=== PATIENT | male | born 1950 | race Caucasian/White ===

== ENCOUNTER 2017-07-09 08:12 | Inpatient (IN) | payer BC, MEDICARE ==
[~2017-07-09] VITALS: Ht 180.3 cm; Wt 72.0 kg
[~2017-07-09 08:12] MED LIST: ASPI81TA39 PO; ATRO2DRO OS; CHOL400T4 PO; DIVA500T69 PO; HYDR-2924 PO; INSLAN SQ; INSU100V SQ; PANT40TA25 PO; PRED1DRO OS; QUET50TA PO; SERT50TA12 PO
[2017-07-09 09:10] LABS: BASOPHILS # (AUTO) 0.02 K/uL (0.00-0.20); BASOPHILS % (AUTO) 0.2 % (0.0-2.0); EOSINOPHILS # (AUTO) 0.01 K/uL (0.00-0.70); EOSINOPHILS % (AUTO) 0.05 % (1.0-6.0); HEMATOCRIT 29.1 % (41-53); HEMOGLOBIN 9.4 g/dL (13.5-17.5); LYMPHOCYTES # (AUTO) 0.4 K/uL (1.0-4.8); LYMPHOCYTES % (AUTO) 3.7 % (22.0-44.0); MEAN CORPUSCULAR HEMOGLOBIN 32.7 pg (26.0-34.0); MEAN CORPUSCULAR HGB CONC 32.2 G/dL (31.0-37.0); MEAN CORPUSCULAR VOLUME 102 fL (80-100); MONOCYTES # (AUTO) 0.4 K/uL (0.1-1.0); MONOCYTES % (AUTO) 3.5 % (2.0-9.0); NEUTROPHILS # (AUTO) 9.5 K/uL (1.8-7.7); PLATELET COUNT (AUTO) 143 K/uL (150-450); RED BLOOD CELL COUNT(AUTO) 2.87 MIL/uL (4.50-5.90); RED CELL DISTRIBUTION WIDTH 18.1 % (11.5-14.5); WHITE BLOOD COUNT (AUTO) 10.2 K/uL (4.5-11.0)
[2017-07-09 09:14] LABS: NEUTROPHILS % (AUTO) 92.5 % (40.0-70.0)
[2017-07-09 09:21] LABS: INR 1.2 (0.9-1.1); PROTHROMBIN TIME 12.3 SEC (9.4-11.6)
[2017-07-09 09:28] LABS: ALBUMIN 3.1 g/dL (3.4-5.0); BILIRUBIN,TOTAL 0.9 mg/dL (0.1-1.0); CALCIUM, TOTAL 8.9 mg/dL (8.8-10.5); CREATININE 4.26 mg/dL (0.60-1.30); POTASSIUM 5.4 mmol/L (3.5-5.1); TOTAL PROTEIN, SERUM 7.5 g/dL (6.4-8.2)
[2017-07-09] MEDS ORDERED: SODIUM CHLORIDE 0.9% 500 ML IV ONE (09:30)
[2017-07-09] MEDS ORDERED: INSULIN REGULAR, HUMAN 100 UNITS/ML IVP ONE (09:45)
[2017-07-09] MEDS ORDERED: SODIUM POLYSTYRENE SULFONATE 15 GM/60 ML SUSPENSION BOTTLE PO ONE (09:45)
[2017-07-09] MEDS ORDERED: PANTOPRAZOLE SODIUM 80 MG in SODIUM CHLORIDE 0.9% 50 ML IV ONE (09:45)
[2017-07-09] MEDS ORDERED: ONDANSETRON HCL 4 MG/2 ML VIAL IVP PRN ×2 (10:15→11:00)
[2017-07-09] MEDS ORDERED: ACETAMINOPHEN 325 MG TABLET PO PRN ×2 (10:15→11:00)
[2017-07-09] MEDS ORDERED: BISACODYL 10 MG RECTAL RECTAL SUPPOSITORY PR PRN (10:15)
[2017-07-09] MEDS ORDERED: PANTOPRAZOLE SODIUM 40 MG/VIAL IVP SCH (10:15)
[2017-07-09] MEDS ORDERED: ALBUTEROL SULFATE 2.5 MG/0.5 ML NEB SOLUTION NEB PRN (10:15)
[2017-07-09 10:18] LABS: GLUCOSE COMMENT 1 Repeated; GLUCOSE COMMENT 3 Doctor Notified; GLUCOSE,POINT OF CARE > 600 MG/DL (70-110)
[2017-07-09] MEDS: OCTREOTIDE ACETATE 500 MCG in DEXTROSE 5%-WATER 97.5 ML IV SCH ×2 (10:18→19:43)
[2017-07-09] MEDS ORDERED: INSULIN ASPART 100 UNITS/ML SQ PRN (10:30)
[2017-07-09] MEDS ORDERED: DEXTROSE 50%-WATER 25 GM/50 ML SYRINGE IVP PRN (10:30)
[2017-07-09] MEDS ORDERED: INSULIN DETEMIR 100 UNITS/ML SQ SCH ×2 (10:30→22:00)
[2017-07-09 10:47] LABS: ALLEN TEST, BLOOD GAS Positive
[2017-07-09 10:48] LABS: ABG BASE EXCESS -13.8 mmol/L (-2.0-3.0); ABG HCO3 14.7 mmol/L (22.0-26.0); ABG OXYHEMOGLOBIN 97.9 % (94.0-100.0); ABG PCO2 28 mmHg (35-45); TEMPERATURE, FAHRENHEIT, BG 98.3 FAHREN (96.0-98.6)
[2017-07-09 10:49] LABS: ABG A-A DIFF O2 14.7 mmHg (10-20.0)
[2017-07-09] MEDS: PANTOPRAZOLE SODIUM 80 MG in SODIUM CHLORIDE 0.9% 100 ML IV SCH ×2 (10:49→19:44)
[2017-07-09] MEDS ORDERED: 0.9% SODIUM CHLORIDE 10 ML SYRINGE IVP PRN (11:00)
[2017-07-09] MEDS: AmLODIPine BESYLATE 5 MG TABLET PO SCH ×2 (11:07→19:43)
[2017-07-09] MEDS: ASPIRIN 81 MG CHEWABLE TABLET PO SCH (11:08)
[2017-07-09] MEDS: CARVEDILOL 12.5 MG TABLET PO SCH ×2 (11:31→19:43)
[2017-07-09] MEDS: ATORVASTATIN CALCIUM 20 MG TABLET PO SCH (11:31)
[2017-07-09 11:48] LABS: GLUCOSE COMMENT 2 Doctor Notified; GLUCOSE,POINT OF CARE > 600 MG/DL (70-110)
[2017-07-09] MEDS ORDERED: INSULIN REGULAR, HUMAN 100 UNITS in SODIUM CHLORIDE 0.9% 99 ML IV PRN ×2 (12:46)
[2017-07-09] MEDS ORDERED: DEXTROSE 5%-WATER 1,000 ML IV SCH (12:54)
[2017-07-09] MEDS ORDERED: DEXTROSE 5%-0.45% SODIUM CHL 1,000 ML IV PRN (13:00)
[2017-07-09 13:37] LABS: GLUCOSE COMMENT 1 Doctor Notified; GLUCOSE,POINT OF CARE > 600 MG/DL (70-110)
[2017-07-09] MEDS ORDERED: CARVEDILOL 6.25 MG TABLET PO SCH (13:45)
[2017-07-09] MEDS ORDERED: AmLODIPine BESYLATE 5 MG TABLET PO SCH (13:45)
[2017-07-09 16:21] VITALS: BP 208/72
[2017-07-09 17:15] LABS: BASOPHILS # (AUTO) 0.01 K/uL (0.00-0.20); BASOPHILS % (AUTO) 0.1 % (0.0-2.0); EOSINOPHILS % (AUTO) 0.01 % (1.0-6.0); HEMATOCRIT 29.2 % (41-53); HEMOGLOBIN 9.5 g/dL (13.5-17.5); LYMPHOCYTES # (AUTO) 0.6 K/uL (1.0-4.8); LYMPHOCYTES % (AUTO) 6.3 % (22.0-44.0); MEAN CORPUSCULAR HEMOGLOBIN 32.4 pg (26.0-34.0); MEAN CORPUSCULAR HGB CONC 32.5 G/dL (31.0-37.0); MEAN CORPUSCULAR VOLUME 100 fL (80-100); MONOCYTES # (AUTO) 0.5 K/uL (0.1-1.0); MONOCYTES % (AUTO) 5.1 % (2.0-9.0); NEUTROPHILS # (AUTO) 8.6 K/uL (1.8-7.7); PLATELET COUNT (AUTO) 158 K/uL (150-450); RED BLOOD CELL COUNT(AUTO) 2.93 MIL/uL (4.50-5.90); RED CELL DISTRIBUTION WIDTH 18.1 % (11.5-14.5); WHITE BLOOD COUNT (AUTO) 9.8 K/uL (4.5-11.0)
[2017-07-09 17:34] LABS: CALCIUM, TOTAL 8.6 mg/dL (8.8-10.5); CREATININE 5.08 mg/dL (0.60-1.30); MAGNESIUM 2.3 mg/dL (1.80-2.40); NEUTROPHILS % (AUTO) 88.6 % (40.0-70.0); PHOSPHORUS 4.4 mg/dL (2.5-4.9); POTASSIUM 3.5 mmol/L (3.5-5.1)
[2017-07-09] MEDS ORDERED: INFLUENZA VIRUS VACCINE QVS 2017-18 (3YR+)/PF 60 MCG/0.5 ML SYRINGE IM ONE (19:45)
[2017-07-09 20:00] VITALS: BP 196/79
[2017-07-09] MEDS: DOCUSATE SODIUM 100 MG CAPSULE PO SCH (21:40)
[2017-07-09] MEDS: LABETALOL HCL 5 MG/ML 20 ML VIAL IVP PRN (21:49)
[2017-07-10] VITALS: BP 167/68
[2017-07-10] MEDS: HydrALAZINE HCL 20 MG/ML VIAL IVP PRN ×3 (00:07→21:11)
[2017-07-10] MEDS ORDERED: POTASSIUM CHL 10 MEQ/WATER 50 ML IV ONE (00:45)
[2017-07-10] MEDS ORDERED: SODIUM CHLORIDE 0.9% 250 ML IV ONE (00:46)
[2017-07-10 01:22] LABS: GLUCOSE,POINT OF CARE 192 MG/DL (70-110)
[2017-07-10 01:22] LABS: GLUCOSE COMMENT 1 Received Meds; GLUCOSE,POINT OF CARE 151 MG/DL (70-110)
[2017-07-10 01:22] LABS: GLUCOSE COMMENT 1 Received Meds; GLUCOSE,POINT OF CARE 266 MG/DL (70-110)
[2017-07-10] MEDS: DEXTROSE 50%-WATER 25 GM/50 ML SYRINGE IVP PRN ×3 (03:42→07:58)
[2017-07-10 04:00] VITALS: BP 193/71
[2017-07-10 04:11] LABS: BASOPHILS % (AUTO) 0.6 % (0.0-2.0); EOSINOPHILS % (AUTO) 2.3 % (1.0-6.0); HEMATOCRIT 30.5 % (41-53); HEMOGLOBIN 10.1 g/dL (13.5-17.5); LYMPHOCYTES # (AUTO) 0.7 K/uL (1.0-4.8); LYMPHOCYTES % (AUTO) 6.8 % (22.0-44.0); MEAN CORPUSCULAR HEMOGLOBIN 32.8 pg (26.0-34.0); MEAN CORPUSCULAR HGB CONC 33.2 G/dL (31.0-37.0); MEAN CORPUSCULAR VOLUME 99 fL (80-100); MONOCYTES # (AUTO) 0.7 K/uL (0.1-1.0); MONOCYTES % (AUTO) 6.8 % (2.0-9.0); NEUTROPHILS # (AUTO) 8.5 K/uL (1.8-7.7); NEUTROPHILS % (AUTO) 83.5 % (40.0-70.0); PLATELET COUNT (AUTO) 163 K/uL (150-450); RED BLOOD CELL COUNT(AUTO) 3.09 MIL/uL (4.50-5.90); WHITE BLOOD COUNT (AUTO) 10.2 K/uL (4.5-11.0)
[2017-07-10 04:24] LABS: CALCIUM, TOTAL 8.8 mg/dL (8.8-10.5); CREATININE 5.19 mg/dL (0.60-1.30); MAGNESIUM 2.1 mg/dL (1.80-2.40); PHOSPHORUS 4.8 mg/dL (2.5-4.9)
[2017-07-10 04:29] LABS: POTASSIUM 2.9 mmol/L (3.5-5.1)
[2017-07-10 04:31] LABS: RBC MORPHOLOGY COMMENT ABNORMAL RBC MORPH
[2017-07-10] MEDS: POTASSIUM CHL 10 MEQ/WATER 50 ML IV SCH ×2 (05:15→06:14)
[2017-07-10 05:57] LABS: GLUCOSE COMMENT 1 Stat Lab Glu Request; GLUCOSE,POINT OF CARE < 10 MG/DL (70-110)
[2017-07-10 05:57] LABS: GLUCOSE,POINT OF CARE 104 MG/DL (70-110)
[2017-07-10 07:07] LABS: GLUCOSE COMMENT 1 Received Meds; GLUCOSE,POINT OF CARE 34 MG/DL (70-110)
[2017-07-10 07:07] LABS: GLUCOSE,POINT OF CARE 139 MG/DL (70-110)
[2017-07-10 08:00] VITALS: BP 176/91
[2017-07-10] MEDS: CARVEDILOL 12.5 MG TABLET PO SCH (08:57)
[2017-07-10] MEDS: DOCUSATE SODIUM 100 MG CAPSULE PO SCH ×2 (08:57→21:11)
[2017-07-10] MEDS: ASPIRIN 81 MG CHEWABLE TABLET PO SCH (08:57)
[2017-07-10] MEDS: ATORVASTATIN CALCIUM 20 MG TABLET PO SCH (08:57)
[2017-07-10] MEDS: HydrALAZINE HCL 25 MG TABLET PO SCH ×3 (08:58→21:11)
[2017-07-10] MEDS: AmLODIPine BESYLATE 5 MG TABLET PO SCH (08:58)
[2017-07-10] MEDS ORDERED: INSULIN ASPART 100 UNITS/ML SQ PRN ×2 (11:15)
[2017-07-10 12:00] VITALS: BP 189/74
[2017-07-10] MEDS: LOSARTAN POTASSIUM 50 MG TABLET PO SCH (13:38)
[2017-07-10 16:00] VITALS: BP 217/83
[2017-07-10 16:43] LABS: GLUCOSE,POINT OF CARE 157 MG/DL (70-110)
[2017-07-10 16:43] LABS: GLUCOSE COMMENT 1 Juice/Food/D50 Given; GLUCOSE,POINT OF CARE 61 MG/DL (70-110)
[2017-07-10] MEDS ORDERED: DEXTROSE 50%-WATER 25 GM/50 ML SYRINGE IVP PRN ×2 (17:00)
[2017-07-10] MEDS: INSULIN REGULAR, HUMAN 100 UNITS/ML SQ PRN (17:01)
[2017-07-10] MEDS: LABETALOL HCL 5 MG/ML 20 ML VIAL IVP PRN ×4 (17:06→23:21)
[2017-07-10 18:03] LABS: GLUCOSE COMMENT 1 Doctor Notified; GLUCOSE COMMENT 2 Received Meds; GLUCOSE,POINT OF CARE 548 MG/DL (70-110)
[2017-07-10 18:03] LABS: GLUCOSE COMMENT 1 Received Meds; GLUCOSE,POINT OF CARE 445 MG/DL (70-110)
[2017-07-10 18:03] LABS: GLUCOSE COMMENT 1 Received Meds; GLUCOSE,POINT OF CARE 400 MG/DL (70-110)
[2017-07-10 18:03] LABS: GLUCOSE,POINT OF CARE 564 MG/DL (70-110)
[2017-07-10 18:03] LABS: GLUCOSE COMMENT 1 Doctor Notified; GLUCOSE COMMENT 2 Received Meds; GLUCOSE,POINT OF CARE 471 MG/DL (70-110)
[2017-07-10 18:03] LABS: GLUCOSE COMMENT 1 Received Meds; GLUCOSE,POINT OF CARE 336 MG/DL (70-110)
[2017-07-10 18:08] LABS: GLUCOSE COMMENT 1 Received Meds; GLUCOSE,POINT OF CARE 187 MG/DL (70-110)
[2017-07-10 18:08] LABS: GLUCOSE COMMENT 1 Received Meds; GLUCOSE,POINT OF CARE 146 MG/DL (70-110)
[2017-07-10 18:08] LABS: GLUCOSE COMMENT 1 Received Meds; GLUCOSE,POINT OF CARE 216 MG/DL (70-110)
[2017-07-10 20:00] VITALS: BP 193/79
[2017-07-10] MEDS: PANTOPRAZOLE SODIUM 40 MG/VIAL IVP SCH (21:10)
[2017-07-10] MEDS: INSULIN DETEMIR 100 UNITS/ML SQ SCH (21:23)
[2017-07-10 21:32] LABS: GLUCOSE,POINT OF CARE 195 MG/DL (70-110)
[2017-07-10] MEDS: CARVEDILOL 25 MG TABLET PO SCH (22:18)
[2017-07-10] MEDS: AmLODIPine BESYLATE 10 MG TABLET PO SCH (22:18)
[2017-07-11] VITALS (16 sets, daily range): BP systolic 153–201; BP diastolic 62–130
[2017-07-11] MEDS: LABETALOL HCL 5 MG/ML 20 ML VIAL IVP PRN ×4 (00:26→04:59)
[2017-07-11] MEDS ORDERED: HydrALAZINE HCL 20 MG/ML VIAL ONE (02:11)
[2017-07-11] MEDS: HydrALAZINE HCL 20 MG/ML VIAL IVP PRN ×5 (02:14→22:18)
[2017-07-11] MEDS ORDERED: CloNIDine HCL 0.1 MG TABLET PO PRN (04:15)
[2017-07-11 05:27] LABS: EOSINOPHILS # (AUTO) 0.19 K/uL (0.00-0.70); EOSINOPHILS % (AUTO) 2.08 % (1.0-6.0); HEMATOCRIT 31.8 % (41-53); HEMOGLOBIN 10.4 g/dL (13.5-17.5); LYMPHOCYTES # (AUTO) 0.8 K/uL (1.0-4.8); LYMPHOCYTES % (AUTO) 8.8 % (22.0-44.0); MEAN CORPUSCULAR HEMOGLOBIN 32.4 pg (26.0-34.0); MEAN CORPUSCULAR HGB CONC 32.8 G/dL (31.0-37.0); MEAN CORPUSCULAR VOLUME 99 fL (80-100); MONOCYTES # (AUTO) 0.6 K/uL (0.1-1.0); MONOCYTES % (AUTO) 6.1 % (2.0-9.0); NEUTROPHILS # (AUTO) 7.7 K/uL (1.8-7.7); NEUTROPHILS % (AUTO) 83.1 % (40.0-70.0); PLATELET COUNT (AUTO) 149 K/uL (150-450); RED BLOOD CELL COUNT(AUTO) 3.21 MIL/uL (4.50-5.90); RED CELL DISTRIBUTION WIDTH 18.6 % (11.5-14.5); WHITE BLOOD COUNT (AUTO) 9.3 K/uL (4.5-11.0)
[2017-07-11 05:41] LABS: CALCIUM, TOTAL 8.7 mg/dL (8.8-10.5); CREATININE 5.93 mg/dL (0.60-1.30); PHOSPHORUS 5.2 mg/dL (2.5-4.9); POTASSIUM 3.5 mmol/L (3.5-5.1)
[2017-07-11] MEDS ORDERED: SODIUM CHLORIDE 0.9% 250 ML IV ONE (06:09)
[2017-07-11 06:35] LABS: RBC MORPHOLOGY COMMENT ABNORMAL RBC MORPH
[2017-07-11] MEDS ORDERED: LIDOCAINE HCL/PF 1% 30 ML VIAL ONE (07:27)
[2017-07-11] MEDS ORDERED: HEPARIN SODIUM 1000 UNITS/NS 1,000 ML ONE (07:27)
[2017-07-11] MEDS ORDERED: IOHEXOL 300 MG/ML 150 ML VIAL ONE (07:27)
[2017-07-11] MEDS ORDERED: SODIUM BICARBONATE 50 MEQ/50 ML VIAL ONE (07:27)
[2017-07-11] MEDS ORDERED: SODIUM CHLORIDE 0.9% 500 ML IV ONE (08:08)
[2017-07-11] MEDS ORDERED: FentaNYL CITRATE-PF 100 MCG/2 ML VIAL ONE (08:09)
[2017-07-11] MEDS ORDERED: VERAPAMIL HCL 2.5 MG/ML 2 ML VIAL ONE (08:10)
[2017-07-11] MEDS ORDERED: LIDOCAINE HCL 1% 20 ML VIAL INJ ONE (08:10)
[2017-07-11] MEDS ORDERED: HEPARIN SODIUM,PORCINE 1,000 UNITS/ML 10 ML VIAL ONE (08:10)
[2017-07-11] MEDS ORDERED: MIDAZOLAM HCL 2 MG/2 ML VIAL ONE (08:10)
[2017-07-11] MEDS ORDERED: NITROGLYCERIN 50 MG/D5% WATER 250 ML ONE (08:11)
[2017-07-11] MEDS ORDERED: HEPARIN SODIUM 2,000 UNITS in HEPARIN SODIUM 1000 UNITS/NS 1,000 ML IARTER ONE (08:11)
[2017-07-11] MEDS ORDERED: IOHEXOL 300 MG/ML 50 ML VIAL IARTER ONE (08:13)
[2017-07-11] MEDS ORDERED: IOHEXOL 300 MG/ML 100 ML VIAL IARTER ONE (08:13)
[2017-07-11] MEDS ORDERED: IOHEXOL 300 MG/ML 150 ML VIAL IARTER ONE (08:13)
[2017-07-11 08:23] LABS: GLUCOSE,POINT OF CARE 184 MG/DL (70-110)
[2017-07-11 08:23] LABS: GLUCOSE,POINT OF CARE 135 MG/DL (70-110)
[2017-07-11] MEDS ORDERED: HEPARIN SODIUM,PORCINE 5,000 UNITS/ML VIAL IVP ONE (08:27)
[2017-07-11] MEDS ORDERED: CLOPIDOGREL BISULFATE 300 MG TABLET ONE (08:33)
[2017-07-11] MEDS ORDERED: CLOPIDOGREL BISULFATE 300 MG TABLET PO ONE (08:35)
[2017-07-11] MEDS ORDERED: IOHEXOL 300 MG/ML 100 ML VIAL ONE (08:36)
[2017-07-11] MEDS ORDERED: NITROGLYCERIN/D5W 50 MG/250 ML IV BOTTLE ICOR ONE (08:48)
[2017-07-11] MEDS ORDERED: VERAPAMIL HCL 2.5 MG/ML 2 ML VIAL ICOR ONE (08:48)
[2017-07-11] MEDS: CARVEDILOL 25 MG TABLET PO SCH ×2 (09:00→20:34)
[2017-07-11] MEDS ORDERED: IOHEXOL 300 MG/ML 50 ML VIAL ONE (09:00)
[2017-07-11] MEDS: HydrALAZINE HCL 25 MG TABLET PO SCH ×3 (09:00→20:33)
[2017-07-11] MEDS ORDERED: ASPIRIN 81 MG CHEWABLE TABLET PO ONE (09:14)
[2017-07-11] MEDS ORDERED: ASPIRIN 81 MG CHEWABLE TABLET ONE (09:15)
[2017-07-11] MEDS: PANTOPRAZOLE SODIUM 40 MG/VIAL IVP SCH ×2 (10:27→20:33)
[2017-07-11] MEDS: DOCUSATE SODIUM 100 MG CAPSULE PO SCH ×2 (10:27→20:34)
[2017-07-11] MEDS: ATORVASTATIN CALCIUM 20 MG TABLET PO SCH (10:27)
[2017-07-11] MEDS: AmLODIPine BESYLATE 10 MG TABLET PO SCH ×2 (10:27→20:34)
[2017-07-11] MEDS ORDERED: SODIUM CHLORIDE 0.9% 2,000 ML IV ONE (10:55)
[2017-07-11] MEDS: INSULIN REGULAR, HUMAN 100 UNITS/ML SQ PRN ×3 (12:24→20:38)
[2017-07-11] MEDS: LOSARTAN POTASSIUM 50 MG TABLET PO SCH (15:02)
[2017-07-11] MEDS: CloNIDine HCL 0.1 MG TABLET PO SCH ×2 (15:02→20:33)
[2017-07-11] MEDS: INSULIN DETEMIR 100 UNITS/ML SQ SCH (20:37)
[2017-07-11 23:13] LABS: GLUCOSE COMMENT 1 Received Meds; GLUCOSE,POINT OF CARE 282 MG/DL (70-110)
[2017-07-12] VITALS (10 sets, daily range): BP systolic 133–183; BP diastolic 64–76
[2017-07-12] MEDS: HydrALAZINE HCL 20 MG/ML VIAL IVP PRN ×3 (00:19→05:36)
[2017-07-12] MEDS: LABETALOL HCL 5 MG/ML 20 ML VIAL IVP PRN ×2 (01:40→03:47)
[2017-07-12 04:57] LABS: GLUCOSE,POINT OF CARE 169 MG/DL (70-110)
[2017-07-12 04:57] LABS: GLUCOSE,POINT OF CARE 203 MG/DL (70-110)
[2017-07-12] MEDS: INSULIN REGULAR, HUMAN 100 UNITS/ML SQ PRN ×4 (05:44→20:58)
[2017-07-12 06:21] LABS: BASOPHILS % (AUTO) 0.2 % (0.0-2.0); EOSINOPHILS % (AUTO) 1.4 % (1.0-6.0); HEMATOCRIT 31.7 % (41-53); HEMOGLOBIN 10.4 g/dL (13.5-17.5); LYMPHOCYTES # (AUTO) 0.8 K/uL (1.0-4.8); LYMPHOCYTES % (AUTO) 10.7 % (22.0-44.0); MEAN CORPUSCULAR HEMOGLOBIN 32.5 pg (26.0-34.0); MEAN CORPUSCULAR HGB CONC 32.9 G/dL (31.0-37.0); MEAN CORPUSCULAR VOLUME 99 fL (80-100); MONOCYTES # (AUTO) 0.6 K/uL (0.1-1.0); MONOCYTES % (AUTO) 7.6 % (2.0-9.0); NEUTROPHILS # (AUTO) 6.1 K/uL (1.8-7.7); NEUTROPHILS % (AUTO) 80.1 % (40.0-70.0); PLATELET COUNT (AUTO) 145 K/uL (150-450); RED CELL DISTRIBUTION WIDTH 18.7 % (11.5-14.5); WHITE BLOOD COUNT (AUTO) 7.6 K/uL (4.5-11.0)
[2017-07-12 07:15] LABS: CALCIUM, TOTAL 8.5 mg/dL (8.8-10.5); CREATININE 4.03 mg/dL (0.60-1.30); MAGNESIUM 1.7 mg/dL (1.80-2.40); PHOSPHORUS 4.3 mg/dL (2.5-4.9); POTASSIUM 3.8 mmol/L (3.5-5.1)
[2017-07-12 07:42] LABS: RBC MORPHOLOGY COMMENT ABNORMAL RBC MORPH
[2017-07-12 08:07] LABS: GLUCOSE COMMENT 1 Received Meds; GLUCOSE,POINT OF CARE 198 MG/DL (70-110)
[2017-07-12] MEDS: CLOPIDOGREL BISULFATE 75 MG TABLET PO SCH (08:43)
[2017-07-12] MEDS: ASPIRIN 81 MG CHEWABLE TABLET PO SCH (08:43)
[2017-07-12] MEDS: PANTOPRAZOLE SODIUM 40 MG/VIAL IVP SCH ×2 (08:43→20:50)
[2017-07-12] MEDS: ATORVASTATIN CALCIUM 20 MG TABLET PO SCH (08:44)
[2017-07-12] MEDS: AmLODIPine BESYLATE 10 MG TABLET PO SCH ×2 (08:44→20:46)
[2017-07-12] MEDS: DOCUSATE SODIUM 100 MG CAPSULE PO SCH ×2 (08:44→20:46)
[2017-07-12] MEDS: CloNIDine HCL 0.1 MG TABLET PO SCH ×3 (08:44→20:46)
[2017-07-12] MEDS: CARVEDILOL 25 MG TABLET PO SCH ×2 (09:00→20:50)
[2017-07-12] MEDS: HydrALAZINE HCL 25 MG TABLET PO SCH ×3 (09:00→20:46)
[2017-07-12] MEDS: LOSARTAN POTASSIUM 50 MG TABLET PO SCH (15:49)
[2017-07-12] MEDS ORDERED: INSULIN REGULAR, HUMAN 100 UNITS/ML SQ ONE (17:30)
[2017-07-12] MEDS ORDERED: INSULIN DETEMIR 100 UNITS/ML SQ SCH (21:00)
[2017-07-13 04:49] VITALS: BP 139/64
[2017-07-13 04:53] LABS: GLUCOSE COMMENT 1 Doctor Notified; GLUCOSE COMMENT 2 Received Meds; GLUCOSE,POINT OF CARE 402 MG/DL (70-110)
[2017-07-13 04:53] LABS: GLUCOSE COMMENT 1 Received Meds; GLUCOSE,POINT OF CARE 346 MG/DL (70-110)
[2017-07-13 04:58] LABS: GLUCOSE,POINT OF CARE 140 MG/DL (70-110)
[2017-07-13 07:28] VITALS: BP 140/64
[2017-07-13] MEDS: ASPIRIN 81 MG CHEWABLE TABLET PO SCH (08:19)
[2017-07-13] MEDS: PANTOPRAZOLE SODIUM 40 MG/VIAL IVP SCH (08:19)
[2017-07-13] MEDS ORDERED: INSULIN DETEMIR 100 UNITS/ML SQ SCH (09:00)
[2017-07-13 11:32] VITALS: BP 177/85
[2017-07-13] MEDS ORDERED: LIDOCAINE HCL/PF 1% 2 ML VIAL INJ ONE (12:00)
[2017-07-13] MEDS: CARVEDILOL 25 MG TABLET PO SCH (12:26)
[2017-07-13] MEDS: CloNIDine HCL 0.1 MG TABLET PO SCH ×2 (12:26→16:00)
[2017-07-13] MEDS: DOCUSATE SODIUM 100 MG CAPSULE PO SCH (12:26)
[2017-07-13] MEDS: HydrALAZINE HCL 25 MG TABLET PO SCH ×2 (12:27→16:00)
[2017-07-13] MEDS: ATORVASTATIN CALCIUM 20 MG TABLET PO SCH (12:27)
[2017-07-13] MEDS: AmLODIPine BESYLATE 10 MG TABLET PO SCH (12:27)
[2017-07-13] MEDS: CLOPIDOGREL BISULFATE 75 MG TABLET PO SCH (12:27)
[2017-07-13] MEDS: LOSARTAN POTASSIUM 50 MG TABLET PO SCH (12:27)
[2017-07-13] MEDS: INSULIN REGULAR, HUMAN 100 UNITS/ML SQ PRN (12:35)
[2017-07-13 13:37] LABS: GLUCOSE COMMENT 1 Received Meds; GLUCOSE,POINT OF CARE 211 MG/DL (70-110)
[2017-07-13 13:37] LABS: GLUCOSE COMMENT 1 Received Meds; GLUCOSE,POINT OF CARE 199 MG/DL (70-110)
[2017-07-13 16:01] VITALS: BP 131/61
[2017-07-13] MEDS ORDERED: INSU100V12 SQ ×2 (16:41)
[2017-07-13] MEDS ORDERED: ATOR20TA86 PO (16:43)
[2017-07-13] MEDS ORDERED: AMLO-512 PO (16:43)
[2017-07-13] MEDS ORDERED: CARV25 PO (16:44)
[2017-07-13] MEDS ORDERED: CLOP75 PO (16:44)
[2017-07-13] MEDS ORDERED: CLON-570 PO (16:45)
[2017-07-13] MEDS ORDERED: LOSA50TA37 PO (16:47)
[2017-07-13] MEDS ORDERED: INSREG SQ (16:53)
[2017-07-13 18:37] LABS: GLUCOSE COMMENT 1 Received Meds; GLUCOSE,POINT OF CARE 297 MG/DL (70-110)
== END 2017-07-13 17:50 | DRG 248 ==
LOC: EMS 08:14 → 5S 10:09 → ICU 10:09 → 5S 07-12 06:30
PROVIDERS: ADMIT Internal Medicine; ATTEND Internal Medicine
PROC: 02703EZ Dilation of Coronary Artery, One Artery with Two Intraluminal Devices, Percutaneous Approach (ICD-10-PCS; principal; 2017-07-11)
PROC: 4A023N7 Measurement of Cardiac Sampling and Pressure, Left Heart, Percutaneous Approach (ICD-10-PCS; 2017-07-11)
PROC: B2151ZZ Fluoroscopy of Left Heart using Low Osmolar Contrast (ICD-10-PCS; 2017-07-11)
PROC: B2111ZZ Fluoroscopy of Multiple Coronary Arteries using Low Osmolar Contrast (ICD-10-PCS; 2017-07-11)
DX: I21.4 Non-ST elevation (NSTEMI) myocardial infarction (principal); N18.6 End stage renal disease; E43 Unspecified severe protein-calorie malnutrition; I13.2 Hypertensive heart and chronic kidney disease with heart failure and with stage 5 chronic kidney disease, or end stage renal disease; E11.10 Type 2 diabetes mellitus with ketoacidosis without coma; K92.0 Hematemesis; E11.22 Type 2 diabetes mellitus with diabetic chronic kidney disease; E87.6 Hypokalemia; B19.20 Unspecified viral hepatitis C without hepatic coma; E87.5 Hyperkalemia; F17.200 Nicotine dependence, unspecified, uncomplicated; F32.9 Major depressive disorder, single episode, unspecified; I25.10 Atherosclerotic heart disease of native coronary artery without angina pectoris; I50.9 Heart failure, unspecified; Z79.82 Long term (current) use of aspirin; Z83.3 Family history of diabetes mellitus; Z96.642 Presence of left artificial hip joint; Z98.61 Coronary angioplasty status; Z99.2 Dependence on renal dialysis; Z28.21 Immunization not carried out because of patient refusal
CPT/HCPCS: 82271; 82805; 82947; 82948; 82962; 83540; 83550; 83735; 84100; 84132; 87081; 90935; 92920; 92928; 93005; 93306; 96361; 96365; 96375; 97162; 99285; C9113; J0360; J1644; J1815; J2250; J2354; J3010; J3480; J3490; J7030; J7050; J7060; Q9967